=== PATIENT | female | born 1985 ===

== ENCOUNTER → 2024-03-02 09:34 | Outpatient (REF) | payer BC, SELFPAY | LOC: WDC 09:34 | DX: N63.15 Unspecified lump in the right breast, overlapping quadrants (principal) | CPT/HCPCS: 76642; 77062; 77066 ==

== ENCOUNTER → 2024-03-11 12:56 | Outpatient (REF) | payer BC, SELFPAY | LOC: WDC 12:56 | PROVIDERS: ATTENDING PHYSICIAN Nurse Practitioner Family | DX: N63.11 Unspecified lump in the right breast, upper outer quadrant (principal) | CPT/HCPCS: 88305; 19083; 19084; 88341; 88360; A4648 ==